=== PATIENT | female | born 1995 | race African-American/Black ===

== ENCOUNTER 2017-03-28 13:23 | Emergency (ER) | payer MEDICAID ==
[~2017-03-28] VITALS: Ht 157.5 cm; Wt 81.5 kg
[2017-03-28 13:23] VITALS: BP 124/73; PULSE 91; RESP 18; TEMP 98.5; O2SAT 95
--- NOTE | 2017-03-28 14:03 | PD ---
HPI Chief Complaint: GI Complaint Time Seen by Provider: 14:03 Travel History International Travel<30 days: No Contact w/Intl Traveler<30days: No Traveled to known affect area: No History of Present Illness HPI 21 -year-old Afro-[place] female presents to our department with sudden onset nausea and vomiting since this morning. Patient states it was yellow-green bitter tasting vomitus. Her last time she vomited was in the waiting room. She denies fever, chills, or upper respiratory symptoms. She has no chest pain or shortness of breath. She feels nauseous but denies significant abdominal pain or burning. History of urinary symptoms. She denies as her last menstrual period was March 25. She denies diarrhea. Patient does admit to drinking 3 cups of alcohol last night. She has no known drug allergies. PFSH Past Medical History ?: Not LMP: 03/25/17 Social History Alcohol Use: Yes Tobacco Use: No Allergies-Medications (Allergen,Severity, Reaction): Coded Allergies: No Known Allergies (Unverified , 03/28/17) Reported Meds & Prescriptions Reported Meds & Active Scripts Active Zofran Odt (Ondansetron Odt) 4 Mg Tab 4 Mg SL Q6HR PRN Reported [Inhaler] Review of Systems Except as stated in HPI: all other systems reviewed are Neg General / Constitutional: No: Fever, Chills Eyes: No: Visual changes HENT: No: Headaches Cardiovascular: No: Chest Pain or Discomfort Respiratory: No: Shortness of Breath Gastrointestinal: Positive: Nausea, Vomiting, Loss of Appetite, No: Diarrhea, Abdominal Pain Genitourinary: No: Dysuria Musculoskeletal: No: Pain Skin: No Rash Neurologic: No: Weakness Psychiatric: No: Depression Endocrine: No: Polydipsia Hematologic/Lymphatic: No: Easy Bruising Physical Exam Narrative GENERAL: Patient appears no acute distress. SKIN: Warm and dry. Normal color. Normal turgor. HEAD: Atraumatic. Normocephalic. EYES: Pupils equal and round. No scleral icterus. No injection or drainage. ENT: No nasal bleeding or discharge. Mucous membranes pink and moist. Is clear. Airway is patent. NECK: Trachea midline. Supple and nontender. CARDIOVASCULAR: Regular rate and rhythm. RESPIRATORY: No accessory muscle use. Clear to auscultation. Breath sounds equal bilaterally. GASTROINTESTINAL: Abdomen soft, mild diffuse tenderness, nondistended. Hepatic and splenic margins not palpable. No CVA tenderness. MUSCULOSKELETAL: Extremities without clubbing, cyanosis, or edema. No obvious deformities. NEUROLOGICAL: Awake and alert. No obvious cranial nerve deficits. Motor grossly within normal limits. Five out of 5 muscle strength in the arms and legs. Normal speech. PSYCHIATRIC: Appropriate mood and affect; insight and judgment normal. Data Data Last Documented VS Vital Signs Date Time Temp Pulse Resp B/P Pulse Ox O2 Delivery O2 Flow Rate FiO2 03/28/17 14:24 18 03/28/17 14:24 97 Room Air 03/28/17 13:23 98.5 91 124/73 Orders Complete Blood Count With Diff (03/28/17 14:10) Comprehensive Metabolic Panel (03/28/17 14:10) Lipase (03/28/17 14:10) Urinalysis - C+S If Indicated (03/28/17 14:10) Iv Access Insert/Monitor (03/28/17 14:10) Ecg Monitoring (03/28/17 14:10) Oximetry (03/28/17 14:10) Ondansetron Inj (Zofran Inj) (03/28/17 14:15) Pantoprazole Inj (Protonix Inj) (03/28/17 14:15) Sodium Chlor 0.9% 1000 Ml Inj (Ns 1000 M (03/28/17 14:10) Sodium Chloride 0.9% Flush (Ns Flush) (03/28/17 14:15) Ed Urine Pregnancytest Poc (03/28/17 14:10) Labs Laboratory Tests Test 03/28/17 03/28/17 14:18 14:51 White Blood Count 6.8 TH/MM3 Red Blood Count 4.61 MIL/MM3 Hemoglobin 11.5 GM/DL Hematocrit 34.5 % Mean Corpuscular Volume 74.9 FL Mean Corpuscular Hemoglobin 24.9 PG Mean Corpuscular Hemoglobin 33.2 % Concent Red Cell Distribution Width 15.0 % Platelet Count 251 TH/MM3 Mean Platelet Volume 8.4 FL Neutrophils (%) (Auto) 84.0 % Lymphocytes (%) (Auto) 12.2 % Monocytes (%) (Auto) 3.3 % Eosinophils (%) (Auto) 0.2 % Basophils (%) (Auto) 0.3 % Neutrophils # (Auto) 5.7 TH/MM3 Lymphocytes # (Auto) 0.8 TH/MM3 Monocytes # (Auto) 0.2 TH/MM3 Eosinophils # (Auto) 0.0 TH/MM3 Basophils # (Auto) 0.0 TH/MM3 CBC Comment DIFF FINAL Differential Comment Sodium Level 139 MEQ/L Potassium Level 4.1 MEQ/L Chloride Level 107 MEQ/L Carbon Dioxide Level 25.0 MEQ/L Anion Gap 7 MEQ/L Blood Urea Nitrogen 11 MG/DL Creatinine 0.67 MG/DL Estimat Glomerular Filtration 133 ML/MIN Rate Random Glucose 114 MG/DL Calcium Level 8.4 MG/DL Total Bilirubin 0.2 MG/DL Aspartate Amino Transf 9 U/L (AST/SGOT) Alanine Aminotransferase 17 U/L (ALT/SGPT) Alkaline Phosphatase 71 U/L Total Protein 7.6 GM/DL Albumin 3.3 GM/DL Lipase 63 U/L Urine Color YELLOW Urine Turbidity CLEAR Urine pH 6.5 Urine Specific [place] 1.025 Urine Protein TRACE mg/dL Urine Glucose (UA) NEG mg/dL Urine Ketones NEG mg/dL Urine Occult Blood MOD Urine Nitrite NEG Urine Bilirubin NEG Urine Urobilinogen LESS THAN 2.0 MG/DL Urine Leukocyte Esterase NEG Urine RBC 106 /hpf Urine WBC 3 /hpf Urine Squamous Epithelial 2 /hpf Cells Urine Bacteria RARE /hpf Urine Mucus FEW /lpf Microscopic Urinalysis Comment CULT NOT INDICATED MDM Medical Decision Making Medical Screen Exam Complete: Yes Emergency Medical Condition: Yes Differential Diagnosis Acute nausea and vomiting. Gastritis. Gallbladder disease. Narrative Course Patient appears medically stable at time of exam. Laboratory including CBC, CMP, lipase and urinalysis. Urine is done as well. Labs come back showing CBC with mild anemia with hemoglobin of 11.5. CMP significant for glucose of 114. Lipase is normal at 63. Urinalysis shows moderate occult blood with 106 RBCs per high-power field. No signs of infection. Patient is felt to have gastritis with nausea and vomiting. Patient is given 1000 miles normal saline bolus as well as pantoprazole 40 mg IV. Patient is also given 4 mg Zofran IV. Patient is felt stable for discharge. She is given a prescription for Zofran 4 mg one every 6 hours when necessary # 15. Patient is to rest and push fluids and take Tylenol as needed. Work note is given for today. Patient can return to emergency department if worsening symptoms develop. Diagnosis Primary Impression: Gastritis Qualified Code: K29.00 - Acute gastritis without hemorrhage, unspecified gastritis type Additional Impression: Nausea and vomiting Qualified Code: R11.2 - Non-intractable vomiting with nausea, unspecified vomiting type Referrals: [facility] Patient Instructions: Acute Nausea and Vomiting (ED), General Instructions Departure Forms: Work Release Enter return to work date: Mar 30, 2017 Additional Instructions: Patient is felt stable for discharge. She is given a prescription for Zofran 4 mg one every 6 hours when necessary # 15. Patient is to rest and push fluids and take Tylenol as needed. Work note is given for today. Patient can return to emergency department if worsening symptoms develop. Med/Other Pt SpecificInfo: Prescription(s) given Scripts Ondansetron Odt (Zofran Odt)4 Mg Tab4 Mg SL Q6HR PRN (Nausea/Vomiting) #15 TAB Prov:Kathy Pan MD 03/28/17 Disposition: 01 DISCHARGE HOME Condition: Stable Alvarado Fleming Mar 28, 2017 14:03 Condition: Alvarado Duncan Mar 28, 2017 14:03
[2017-03-28] MEDS ORDERED: SODIUM CHLOR 0.9% 1000 ML INJ 1,000 ML IV SCH (14:10)
[2017-03-28] MEDS ORDERED: PANTOPRAZOLE SODIUM 40 MG VIAL IVP ONE (14:15)
[2017-03-28] MEDS ORDERED: ONDANSETRON HCL 4 MG/2 ML VIAL IVP ONE (14:15)
[2017-03-28] MEDS ORDERED: SODIUM CHLORIDE 0.9% FLUSH 10 ML FLUSH IV FLUSH PRN (14:15)
[2017-03-28 14:24] VITALS: O2SAT 97
[2017-03-28 14:26] LABS: AUTOMATED NEUTROPHIL # 5.7 TH/MM3 (1.8-7.7); BASOPHIL % 0.3 % (0.0-2.0); EOSINOPHIL % 0.2 % (0.0-4.0); HEMATOCRIT 34.5 % (35.0-46.0); HEMO FLAGS DIFF FINAL; LYMPH % 12.2 % (9.0-44.0); LYMPHOCYTE # 0.8 TH/MM3 (1.0-4.8); MEAN CELL VOLUME 74.9 FL (80.0-100.0); MEAN CORPUSCULAR HEMOGLOBIN 24.9 PG (27.0-34.0); MEAN CORPUSCULAR HGB CONC 33.2 % (32.0-36.0); MONO % 3.3 % (0.0-8.0); PLATELET COUNT 251 TH/MM3 (150-450); RED BLOOD COUNT 4.61 MIL/MM3 (4.00-5.30); WHITE BLOOD COUNT 6.8 TH/MM3 (4.0-11.0)
[2017-03-28] MEDS ORDERED: INHALER (14:26)
[2017-03-28 14:44] LABS: ANION GAP 7 MEQ/L (5-15); AST (GOT) 9 U/L (15-37); BLOOD UREA NITROGEN 11 MG/DL (7-18); CHLORIDE 107 MEQ/L (98-107); GLOMERULAR FILTRATION RATE 133 ML/MIN (>89); POTASSIUM 4.1 MEQ/L (3.5-5.1); SODIUM (NA) 139 MEQ/L (136-145)
[2017-03-28 14:46] LABS: ALT (GPT) 17 U/L (10-53)
[2017-03-28 14:48] LABS: ALKALINE PHOSPHATASE 71 U/L (45-117); TOTAL BILIRUBIN ADULT 0.2 MG/DL (0.2-1.0)
[2017-03-28 15:10] LABS: BACTERIA, URINE RARE /hpf; BLOOD, URINE MOD (NEG); COMMENT (UR) CULT NOT INDICATED; CULTURE IF INDICATED CULT NOT INDICATED; GLUCOSE,URINE NEG (NEG); KETONE, URINE NEG (NEG); MUCUS URINE FEW /lpf (OCC); NITRITE,URINE NEG (NEG); PH, URINE 6.5 (5.0-8.5); SQUAMOUS EPITHELIAL CELL URINE 2 /hpf (0-5); URINE COLOR YELLOW (YELLW/STRAW)
[2017-03-28] MEDS ORDERED: ZOFR4TAB3 SL (15:30)
== END 2017-03-28 16:16 | disposition home or self-care (01) ==
LOC: NEPD 13:23
DX: K29.00 Acute gastritis without bleeding (principal)
CPT/HCPCS: 80053; 81001; 83690; 84703; 85025; 96361; 96374; 96375; 99284; C9113; J2405; J7030

== ENCOUNTER 2017-09-30 16:43 | Emergency (ER) | payer BC ==
[~2017-09-30] VITALS: Ht 157.5 cm; Wt 91.0 kg
[~2017-09-30 16:43] MED LIST: INHALER; ZOFR4TAB3 SL
[2017-09-30 16:44] VITALS: BP 137/88; PULSE 101; RESP 14; TEMP 97.7; O2SAT 100
[2017-09-30 18:05] LABS: AUTOMATED NEUTROPHIL # 4.8 TH/MM3 (1.8-7.7); BASOPHIL % 0.3 % (0.0-2.0); EOSINOPHIL # 0.1 TH/MM3 (0-0.4); EOSINOPHIL % 1.7 % (0.0-4.0); HEMOGLOBIN 11.6 GM/DL (11.6-15.3); LYMPH % 25.9 % (9.0-44.0); LYMPHOCYTE # 1.9 TH/MM3 (1.0-4.8); MEAN CELL VOLUME 76.4 FL (80.0-100.0); MEAN CORPUSCULAR HEMOGLOBIN 25.4 PG (27.0-34.0); MEAN CORPUSCULAR HGB CONC 33.3 % (32.0-36.0); MEAN PLATELET VOLUME 8.5 FL (7.0-11.0); MONO % 7.6 % (0.0-8.0); MONOCYTE # 0.6 TH/MM3 (0-0.9); NEUT % 64.5 % (16.0-70.0); PLATELET COUNT 236 TH/MM3 (150-450); RED BLOOD COUNT 4.58 MIL/MM3 (4.00-5.30); WHITE BLOOD COUNT 7.4 TH/MM3 (4.0-11.0)
[2017-09-30 18:18] LABS: BACTERIA, URINE MANY /hpf; BILIRUBIN, URINE NEG (NEG); BLOOD, URINE TRACE (NEG); GLUCOSE,URINE NEG (NEG); KETONE, URINE NEG (NEG); MUCUS URINE MANY /lpf (OCC); NITRITE,URINE NEG (NEG); SQUAMOUS EPITHELIAL CELL URINE 15 /hpf (0-5); URINE COLOR YELLOW (YELLW/STRAW); URINE LEUKOCYTE ESTERASE MOD (NEG)
[2017-09-30 18:19] LABS: ALBUMIN 3.3 GM/DL (3.4-5.0); ALT (GPT) 15 U/L (10-53); AST (GOT) 11 U/L (15-37); BICARBONATE 24.4 MEQ/L (21.0-32.0); BLOOD UREA NITROGEN 9 MG/DL (7-18); CALCIUM 8.4 MG/DL (8.5-10.1); CHLORIDE 102 MEQ/L (98-107); CREATININE 0.56 MG/DL (0.50-1.00); GLOMERULAR FILTRATION RATE 162 ML/MIN (>89); GLUCOSE,RANDOM 89 MG/DL (74-106); SODIUM (NA) 134 MEQ/L (136-145)
[2017-09-30 18:22] LABS: ALKALINE PHOSPHATASE 63 U/L (45-117); TOTAL BILIRUBIN ADULT 0.3 MG/DL (0.2-1.0); TOTAL PROTEIN 7.6 GM/DL (6.4-8.2)
--- NOTE | 2017-09-30 19:37 | PD ---
HPI Chief Complaint: Related Problem Time Seen by Provider: 19:07 Travel History International Travel<30 days: No Contact w/Intl Traveler<30days: No Traveled to known affect area: No History of Present Illness HPI 22-year-old black female 2 para 1 with approximately 8 week . She states that her period was in the middle of July. [facility] and had a brain CT confirmed. Patient states that she's been having some lower pelvic and upper abdominal pain since yesterday. She states the pain is intermittent lasting minutes. Sharp and cramping at times. Currently she has no pain. There is no aggravating or alleviating factors. She denies any vaginal discharge, vaginal bleeding or leakage fluid. Denies any fever or chills. No nausea vomiting. No dysuria. PFSH Past Medical History Narrative Medical Asthma Asthma: Yes Tetanus Vaccination: Unknown Influenza Vaccination: No ?: LMP: LMP JULY 2017 Past Surgical History Surgical History: No Previous Surgery Social History Alcohol Use: No Tobacco Use: No Substance Use: No Allergies-Medications (Allergen,Severity, Reaction): Coded Allergies: No Known Allergies (Unverified , 03/28/17) Reported Meds & Prescriptions Reported Meds & Active Scripts Active Reported [Inhaler] Review of Systems Except as stated in HPI: all other systems reviewed are Neg Physical Exam Narrative GENERAL: Well-developed, well-nourished in no acute distress. Nontoxic appearing. HEAD: Normocephalic, atraumatic. EYES: Pupils equal round and reactive. Extraocular motions intact. No scleral icterus. No injection or drainage. ENT: TMs clear without erythema. The external auditory canals clear. Nose: clear . Posterior pharynx is pink and moist. No tonsillar edema or exudate. Uvula midline. Airway patent. NECK: Trachea midline.Supple, nontender, moves head freely. No central bony tenderness or spasm. CARDIOVASCULAR: Regular rate and rhythm without murmurs, gallops, or rubs. RESPIRATORY: Clear to auscultation. Breath sounds equal bilaterally. No wheezes , rales, or rhonchi. GASTROINTESTINAL: Abdomen soft, non-tender, obese. No hepato-splenomegaly, or palpable masses. No guarding. EXTREMITIES: No clubbing, cyanosis, or edema. No joint tenderness, effusion, or edema noted. BACK: Nontender without deformity or crepitance. No flank tenderness. Data Data Last Documented VS Vital Signs Date Time Temp Pulse Resp B/P (MAP) Pulse Ox O2 Delivery O2 Flow Rate FiO2 09/30/17 16:44 97.7 101 14 137/88 (104) 100 Orders Orders Complete Blood Count With Diff (09/30/17 17:03) Comprehensive Metabolic Panel (09/30/17 17:03) Urinalysis - C+S If Indicated (09/30/17 17:03) Urine Culture (09/30/17 17:24) Gc And Chlamydia Pcr (09/30/17 19:32) Complete Rh (09/30/17 19:32) Us Pelvis (Ques Preg/Ectopic) (09/30/17 ) Wet Prep Profile (09/30/17 19:32) Azithromycin Powd Pack (Zithromax Powd P (09/30/17 19:45) Ceftriaxone Inj (Rocephin Inj) (09/30/17 19:45) Lidocaine 1% Inj (50 Ml) (Xylocaine 1% I (09/30/17 19:45) Ed Urine Pregnancytest Poc (09/30/17 19:32) Beta Hcg (Quant/Titer) (09/30/17 19:38) Labs Laboratory Tests Test 09/30/17 17:24 09/30/17 20:00 White Blood Count 7.4 TH/MM3 Red Blood Count 4.58 MIL/MM3 Hemoglobin 11.6 GM/DL Hematocrit 35.0 % Mean Corpuscular Volume 76.4 FL Mean Corpuscular Hemoglobin 25.4 PG Mean Corpuscular Hemoglobin Concent 33.3 % Red Cell Distribution Width 16.0 % Platelet Count 236 TH/MM3 Mean Platelet Volume 8.5 FL Neutrophils (%) (Auto) 64.5 % Lymphocytes (%) (Auto) 25.9 % Monocytes (%) (Auto) 7.6 % Eosinophils (%) (Auto) 1.7 % Basophils (%) (Auto) 0.3 % Neutrophils # (Auto) 4.8 TH/MM3 Lymphocytes # (Auto) 1.9 TH/MM3 Monocytes # (Auto) 0.6 TH/MM3 Eosinophils # (Auto) 0.1 TH/MM3 Basophils # (Auto) 0.0 TH/MM3 CBC Comment DIFF FINAL Differential Comment Urine Color YELLOW Urine Turbidity HAZY Urine pH 6.0 Urine Specific [place] 1.034 Urine Protein 30 mg/dL Urine Glucose (UA) NEG mg/dL Urine Ketones NEG mg/dL Urine Occult Blood TRACE Urine Nitrite NEG Urine Bilirubin NEG Urine Urobilinogen LESS THAN 2.0 MG/DL Urine Leukocyte Esterase MOD Urine RBC 4 /hpf Urine WBC 20 /hpf Urine Squamous Epithelial Cells 15 /hpf Urine Bacteria MANY /hpf Urine Mucus MANY /lpf Microscopic Urinalysis Comment CULTURE INDICATED Blood Urea Nitrogen 9 MG/DL Creatinine 0.56 MG/DL Random Glucose 89 MG/DL Total Protein 7.6 GM/DL Albumin 3.3 GM/DL Calcium Level 8.4 MG/DL Alkaline Phosphatase 63 U/L Aspartate Amino Transf (AST/SGOT) 11 U/L Alanine Aminotransferase (ALT/SGPT) 15 U/L Total Bilirubin 0.3 MG/DL Sodium Level 134 MEQ/L Potassium Level 3.4 MEQ/L Chloride Level 102 MEQ/L Carbon Dioxide Level 24.4 MEQ/L Anion Gap 8 MEQ/L Estimat Glomerular Filtration Rate 162 ML/MIN Human Chorionic Gonadotropin, Quant 10864 MIU/ML MDM Medical Decision Making Medical Screen Exam Complete: Yes Emergency Medical Condition: Yes Medical Record Reviewed: Yes Interpretation(s) Laboratory Tests Test 09/30/17 17:24 09/30/17 20:00 White Blood Count 7.4 TH/MM3 Red Blood Count 4.58 MIL/MM3 Hemoglobin 11.6 GM/DL Hematocrit 35.0 % Mean Corpuscular Volume 76.4 FL Mean Corpuscular Hemoglobin 25.4 PG Mean Corpuscular Hemoglobin Concent 33.3 % Red Cell Distribution Width 16.0 % Platelet Count 236 TH/MM3 Mean Platelet Volume 8.5 FL Neutrophils (%) (Auto) 64.5 % Lymphocytes (%) (Auto) 25.9 % Monocytes (%) (Auto) 7.6 % Eosinophils (%) (Auto) 1.7 % Basophils (%) (Auto) 0.3 % Neutrophils # (Auto) 4.8 TH/MM3 Lymphocytes # (Auto) 1.9 TH/MM3 Monocytes # (Auto) 0.6 TH/MM3 Eosinophils # (Auto) 0.1 TH/MM3 Basophils # (Auto) 0.0 TH/MM3 CBC Comment DIFF FINAL Differential Comment Urine Color YELLOW Urine Turbidity HAZY Urine pH 6.0 Urine Specific [place] 1.034 Urine Protein 30 mg/dL Urine Glucose (UA) NEG mg/dL Urine Ketones NEG mg/dL Urine Occult Blood TRACE Urine Nitrite NEG Urine Bilirubin NEG Urine Urobilinogen LESS THAN 2.0 MG/DL Urine Leukocyte Esterase MOD Urine RBC 4 /hpf Urine WBC 20 /hpf Urine Squamous Epithelial Cells 15 /hpf Urine Bacteria MANY /hpf Urine Mucus MANY /lpf Microscopic Urinalysis Comment CULTURE INDICATED Blood Urea Nitrogen 9 MG/DL Creatinine 0.56 MG/DL Random Glucose 89 MG/DL Total Protein 7.6 GM/DL Albumin 3.3 GM/DL Calcium Level 8.4 MG/DL Alkaline Phosphatase 63 U/L Aspartate Amino Transf (AST/SGOT) 11 U/L Alanine Aminotransferase (ALT/SGPT) 15 U/L Total Bilirubin 0.3 MG/DL Sodium Level 134 MEQ/L Potassium Level 3.4 MEQ/L Chloride Level 102 MEQ/L Carbon Dioxide Level 24.4 MEQ/L Anion Gap 8 MEQ/L Estimat Glomerular Filtration Rate 162 ML/MIN Human Chorionic Gonadotropin, Quant 11105 MIU/ML Differential Diagnosis Differential diagnoses: Early , ectopic, gastritis, UTI, vaginitis Narrative Course Patient is urine as contamination but is somewhat concerning for possible UTI. The patient will be given Rocephin 250 mg IM and 1 g Zithromax. We will perform a pelvic and obtain cultures. Basic laboratory tests including a quantitative hCG and ultrasound of been ordered. Patient's ultrasound confirms an IUP with a normal heart rate. Patient has a UTI. Patient will be discharged and advised to follow-up with her OB doctor. Procedures Procedure Narrative GENITOURINARY: Normal external genitalia without lesions or erythema. Vaginal vault without blood or drainage. Cervical os was closed without drainage. No cervical motion tenderness. Uterus nontender.. Bilateral adnexa nontender without masses. Uterus consistent with 8 weeks. The nurse is present during exam. Diagnosis Primary Impression: Pelvic pain affecting Qualified Codes: O26.891 - Other specified related conditions, first trimester; R10.2 - Pelvic and perineal pain Additional Impression: UTI Patient Instructions: General Instructions Additional Instructions: Rest. Force fluids. Keflex. Your blood type is Rh- Follow-up with your OB doctor in the next 2-3 days. Return to the ER for any problems. Med/Other Pt SpecificInfo: Prescription(s) given Disposition: 01 DISCHARGE HOME Condition: Stable Keelen,Nba T. PA Sep 30, 2017 19:37
[2017-09-30] MEDS ORDERED: LIDOCAINE HCL 1% 50 ML VIAL IM ONE (19:45)
[2017-09-30] MEDS ORDERED: AZITHROMYCIN PWD FOR SUSP 1 GM PACKET PO ONE (19:45)
[2017-09-30] MEDS ORDERED: cefTRIAXone 250 MG VIAL IM ONE (19:45)
[2017-09-30] MEDS ORDERED: CEPH-460 PO (21:07)
[2017-09-30] MEDS ORDERED: LIDOCAINE HCL 1% 20 ML VIAL OTHER ONE (21:30)
--- NOTE | 2017-09-30 23:27 | RADRPT ---
EXAM DATE/TIME: 09/30/2017 20:30 [facility] COMPARISON: No previous studies available for comparison. INDICATIONS : Pelvic pain. LAB(S): Beta-hC MEDICAL HISTORY : Asthma. SURGICAL HISTORY : None. ENCOUNTER: Initial ACUITY: 2 days PAIN SCORE: 4/10 LOCATION: Bilateral pelvis MEASUREMENTS: UTERUS: 10.7 x 8.0 x 6.5 cm ENDOMETRIAL STRIPE: >20 mm RIGHT OVARY: 2.9 x 2.2 x 2.1 cm LEFT OVARY: 2.9 x 1.9 x 1.9 cm FREE FLUID: No CROWN RUMP LENGTH: 2.2 = 8 WKS 6 DAYS FHR: 167 BPM FINDINGS: There is no free fluid. Within the uterus, a gestational sac is noted containing a pole and yol k sac. Estimated gestational age based on mean sac diameter is 7 weeks 6 days, based on crown-rump ri ght measurement, 9 weeks zero days. heart rate of 167 beats per minute is noted. The ovaries ar e normal in appearance. CONCLUSION: Single viable intrauterine gestation as above. Smith Melchor MD on September 30, 2017 at 23:24 Board Certified Radiologist. This report was verified electronically.
== END 2017-09-30 21:30 | disposition home or self-care (01) ==
LOC: NEPD 16:43
DX: O26.891 Other specified pregnancy related conditions, first trimester (principal); R10.2 Pelvic and perineal pain; O23.41 Unspecified infection of urinary tract in pregnancy, first trimester; B95.61 Methicillin susceptible Staphylococcus aureus infection as the cause of diseases classified elsewhere; Z3A.08 8 weeks gestation of pregnancy
CPT/HCPCS: 76700; 80053; 81001; 84702; 84703; 85025; 86403; 86901; 87086; 87186; 87210; 87491; 87591; 96372; 99284; J0696